=== PATIENT | female | born 1995 | race Caucasian/White ===

== ENCOUNTER 2017-04-23 14:18 | Emergency (ER) | payer SELFPAY ==
[~2017-04-23] VITALS: Ht 160 cm; Wt 50.7 kg
[2017-04-23 14:27] VITALS: Ht 160 cm; Wt 50.7 kg
[2017-04-23] MEDS ORDERED: SODIUM CHLORIDE 0.9% 1000ML 1,000 ML IV STA (15:21)
[2017-04-23 16:05] LABS: BASO % 0.2 %; BASO ABS # 0.02 K/uL (0-0.2); COMPLETE YES; EOS % 0.2 %; HEMATOCRIT 44.3 % (37-47); IG% 0.2 %; LYMPH % 26.6 %; LYMPH ABS # 3.37 K/uL (1.2-3.4); MEAN CELL VOLUME 87.2 fL (80-100); MEAN CORPUSCULAR HEMOGLOBIN 28.9 pg (25-34); MEAN CORPUSCULAR HGB CONC 33.2 g/dl (32-36); MEAN PLATELET VOLUME 9.2 fL (7.4-10.4); MONO % 6.2 %; NEUT % 66.6 %; PLATELET COUNT 332 K/uL (130-400); RED BLOOD COUNT 5.08 M/uL (4.2-5.4); WHITE BLOOD COUNT 12.68 K/uL (4.8-10.8)
[2017-04-23 16:14] LABS: URINE APPEARANCE CLEAR (CLEAR); URINE BILIRUBIN NEG (NEG); URINE COLOR DK YELLOW; URINE EPITHELIAL CELL AUTO >30 /lpf (0-5); URINE NITRITE NEG (NEG); URINE PH 5.5 (4.5-7.5); URINE SPECIFIC GRAVITY 1.032 (1.000-1.030); UROBILINOGEN NEG (NEG)
[2017-04-23 16:16] LABS: MANUAL MICROSCOPIC REQUIRED? NO; REVIEW REQ? NO
[2017-04-23 16:23] LABS: BUN/CREATININE RATIO 12.5 (10-20); CALCIUM 9.1 mg/dl (8.5-10.1); CREATININE 0.72 mg/dl (0.60-1.20); POTASSIUM 3.5 mmol/L (3.5-5.1)
[2017-04-23 16:26] LABS: ALB/GLOB RATIO 1.3 (0.9-2)
--- NOTE | 2017-04-23 17:49 | EMERGENCY ROOM VISIT NOTE ---
History First contact with patient: 15:13 Chief Complaint: OTHER COMPLAINT Stated Complaint: RICE LIKE OBJECTS IN FECES History of Present Illness The patient is a 21 year old female who presents to the Emergency Room with complaints of concern for tapeworm infection, states she noted white worms in her stool this morning. Patient states she has 4 cats that live with her that have all been diagnosed with tapeworm infection in the past week and have been receiving treatment. She states today is the first time she noticed possible worms in her stool. She denies any symptoms of fever/chills, nausea/vomiting, abdominal pain or cramping, diarrhea, constipation, blood in the stool, urinary symptoms. She denies eating any undercooked meats recently. Last menstrual period is 03/10, patient states her periods have been sporadic since coming off of implanted control in December. She states she is currently sexually active and does not use protection. Review of Systems GENERAL: Denies fevers, chills, malaise, fatigue, unintentional weight changes. HEENT: Denies dizziness, visual problems, hearing loss, tinnitus. Denies difficulty swallowing or oral lesions. PULMONARY: Denies cough, shortness of breath, sputum production or hemoptysis. CARDIOVASCULAR: Denies chest pain, palpitations, dyspnea on exertion, orthopnea or peripheral edema. GASTROINTESTINAL: Denies diarrhea, constipation, nausea, vomiting, or abdominal pain. GENITOURINARY: Denies dysuria, frequency, urgency or nocturia. NEUROLOGIC: Denies history of epilepsy, CVA, TIA or chronic headaches. MUSCULOSKELETAL: Denies history of joint tenderness/swelling. SKIN: Denies rashes or lesions. PSYCHIATRIC: Denies history of depression or mental illness. ENDOCRINE: Denies history of diabetes, thyroid disorders, abnormal hair growth or sexual dysfunction. Past Medical/Surgical History Medical Problems: (1) Hx of migraines Family History Diabetes mellitus Social History Smoking Status: Current Every Day Smoker Alcohol Use: none Drug Use: cocaine Marital Status: in relationship Occupation Status: student Current/Historical Medications No Active Prescriptions or Reported Meds Allergies Coded Allergies: Penicillins (Verified Allergy, Unknown, ., 11/05/16) Physical Exam Vital Signs Date Time Temp Pulse Resp B/P (MAP) Pulse Ox O2 Delivery O2 Flow Rate FiO2 04/23/17 18:09 36.6 80 16 118/62 97 Room Air 04/23/17 17:30 84 16 114/62 97 04/23/17 16:00 119 22 122/70 98 04/23/17 14:27 36.6 145 18 122/78 100 Room Air Physical Exam CONSTITUTIONAL: No acute distress. Anxious. Well appearing and well nourished. Alert and oriented X 4 with normal affect. HEENT: Normocephalic, atraumatic. Pupils equal, round and reactive to light, EOMI. TMs normal. Pharynx normal. Moist mucous membranes. NECK: Supple, full active range of motion without discomfort. RESPIRATORY: Clear to auscultation bilaterally with no wheezing, crackles, rhonchi or stridor. Equal expansion bilaterally. CARDIOVASCULAR: Regular rate and rhythm with no murmurs, rubs or gallops. Normal peripheral perfusion. No edema. GASTROINTESTINAL: Soft, nontender, nondistended. Bowel sounds present in all quadrants. No erythema, irritation, presence of parasites noted on exam of the anus. MUSCULOSKELETAL: Full range of motion of all joints without discomfort. INTEGUMENTARY: No rash or other significant dermatologic conditions noted. NEUROLOGIC: Cranial nerves II-XII grossly intact. No focal neurologic deficits noted. Medical Decision & Procedures Laboratory Results 04/23/17 15:45 Red Blood Count 5.08, Mean Corpuscular Volume 87.2, Mean Corpuscular Hemoglobin 28.9, Mean Corpuscular Hemoglobin Concent 33.2, Mean Platelet Volume 9.2, Neutrophils (%) (Auto) 66.6, Lymphocytes (%) (Auto) 26.6, Monocytes (%) (Auto) 6.2, Eosinophils (%) (Auto) 0.2, Basophils (%) (Auto) 0.2, Neutrophils # (Auto) 8.44, Lymphocytes # (Auto) 3.37, Monocytes # (Auto) 0.79, Eosinophils # (Auto) 0.03, Basophils # (Auto) 0.02 04/23/17 15:45 Test 04/23/17 00:00 04/23/17 15:25 04/23/17 15:45 Urine Color DK YELLOW Urine Appearance CLEAR (CLEAR) Urine pH 5.5 (4.5-7.5) Urine Specific [employer] 1.032 (1.000-1.030) Urine Protein TRACE (NEG) Urine Glucose (UA) NEG (NEG) Urine Ketones 2+ (NEG) Urine Occult Blood NEG (NEG) Urine Nitrite NEG (NEG) Urine Bilirubin NEG (NEG) Urine Urobilinogen NEG (NEG) Urine Leukocyte Esterase NEG (NEG) Urine WBC (Auto) 1-5 /hpf (0-5) Urine RBC (Auto) 0-4 /hpf (0-4) Urine Hyaline Casts (Auto) 1-5 /lpf (0-5) Urine Epithelial Cells (Auto) >30 /lpf (0-5) Urine Bacteria (Auto) NEG (NEG) White Blood Count 12.68 K/uL (4.8-10.8) Red Blood Count 5.08 M/uL (4.2-5.4) Hemoglobin 14.7 g/dL (12.0-16.0) Hematocrit 44.3 % (37-47) Mean Corpuscular Volume 87.2 fL (80-100) Mean Corpuscular Hemoglobin 28.9 pg (25-34) Mean Corpuscular Hemoglobin Concent 33.2 g/dl (32-36) Platelet Count 332 K/uL (130-400) Mean Platelet Volume 9.2 fL (7.4-10.4) Neutrophils (%) (Auto) 66.6 % Lymphocytes (%) (Auto) 26.6 % Monocytes (%) (Auto) 6.2 % Eosinophils (%) (Auto) 0.2 % Basophils (%) (Auto) 0.2 % Neutrophils # (Auto) 8.44 K/uL (1.4-6.5) Lymphocytes # (Auto) 3.37 K/uL (1.2-3.4) Monocytes # (Auto) 0.79 K/uL (0.11-0.59) Eosinophils # (Auto) 0.03 K/uL (0-0.5) Basophils # (Auto) 0.02 K/uL (0-0.2) RDW Standard Deviation 41.7 fL (36.4-46.3) RDW Coefficient of Variation 12.9 % (11.5-14.5) Immature Granulocyte % (Auto) 0.2 % Immature Granulocyte # (Auto) 0.03 K/uL (0.00-0.02) Anion Gap 10.0 mmol/L (3-11) Est Creatinine Clear Calc Drug Dose 100.6 ml/min Estimated GFR () 140.7 Estimated GFR (Non- 121.4 BUN/Creatinine Ratio 12.5 (10-20) Calcium Level 9.1 mg/dl (8.5-10.1) Total Bilirubin 0.6 mg/dl (0.2-1) Aspartate Amino Transf (AST/SGOT) 21 U/L (15-37) Alanine Aminotransferase (ALT/SGPT) 31 U/L (12-78) Alkaline Phosphatase 69 U/L (45-117) Total Protein 7.9 gm/dl (6.4-8.2) Albumin 4.4 gm/dl (3.4-5.0) Globulin 3.5 gm/dl (2.5-4.0) Albumin/Globulin Ratio 1.3 (0.9-2) Medications Administered Medications (Trade) Dose Ordered Sig/Zeenat Route Start Time Stop Time Status Last Admin Dose Admin Sodium Chloride 1,000 ml @ 999 mls/hr Q1H1M STAT IV 04/23/17 15:21 04/23/17 16:21 DC 04/23/17 15:56 999 MLS/HR Medical Decision CC: Patient presenting with complaint of possible tapeworm infection Interpretation of Labs: Mild leukocytosis, no anemia, no significant electrolyte abnormalities, normal renal function normal liver function, no UTI. Positive test. Differential Diagnosis: Includes, but not limited to tapeworm, pinworm, anxiety , dehydration, electrolyte abnormality. Medication Reconciliation: I attest that I have personally reviewed the patient' s current medication list. Vital signs review: I reviewed the patient's vital signs and interpret them as follows: T: Afebrile; BP: Normotensive; HR: WNL; RR: WNL; Pulse Ox: WNL. Blood pressure screening: The patient was found to have normal blood pressure on screening and does not require follow-up for repeat blood pressure check. Summary: Patient was evaluated at bedside, history of physical exam performed. Patient is very anxious on initial exam, states she is worried about having tapeworm. She is noted to be quite tachycardic on initial evaluation. Her exam is benign, no abdominal tenderness, she does not appear dehydrated. No evidence of tapeworm on examination of the anus. Orders were placed at bedside for labs, urinalysis, EKG, IV fluids to evaluate for causes of tachycardia. Patient discussed with Dr. Tyler, who agrees with my assessment and plan. Labs reviewed, no significant abnormalities. Patient noted to be incidentally on urine test. Tachycardia resolved after IV fluids and patient calm. Patient updated on results of test, she states she has no PCP currently and does not have medical insurance. Discussed with keycase assembler met with the patient, she is helping to arrange for patient to have follow-up medical care through [facility]. Patient unable to provide stool sample in the ED, she was instructed to have stool testing done through her PCP when she is established. Patient reassessed multiple times throughout ED stay, much improved on reassessment, no longer tachycardic or anxious. She was discharged home in stable condition. Impression Primary Impression: Change in stool Additional Impression: Incidental Departure Information Dispostion Home / Self-Care Condition GOOD Prescriptions No Active Prescriptions or Reported Meds Referrals No Doctor, Assigned (PCP) Patient Instructions My [facility] Common Questions Additional Instructions We are arranging for you to have follow-up with [facility]. We will call you on Tuesday to arrange follow-up appointment. We will also help to arrange OB follow-up for further management of her . Drink plenty of fluids to stay well hydrated. Once you have your follow-up appointment established, they will be able to arrange for testing your stool for parasites and determining further treatment. Please return to the ER for symptoms of severe abdominal pain, vaginal bleeding , persistent vomiting and unable to keep fluids down, fevers/chills, or any other concerns. Problem Qualifiers
[2017-04-23 18:09] VITALS: BP 118/62; PULSE 80; TEMP 36.6; O2SAT 97
== END 2017-04-23 18:18 | disposition home or self-care (01) ==
LOC: C.EDB 14:20 → C.EDA 18:18
DX: R19.5 Other fecal abnormalities (principal); Z33.1 Pregnant state, incidental; F17.200 Nicotine dependence, unspecified, uncomplicated; Z88.0 Allergy status to penicillin; Z83.3 Family history of diabetes mellitus

== ENCOUNTER → 2017-04-28 | Outpatient (CLI) | payer OTHER ==
[~2017-04-28] MED LIST: PREN0.12 PO
[2017-05-02 15:43] LABS: CHLAMYDIA TRACH RNA*** NOT DETECTED (NOT DETECTED); GC (NEIS GONORRHOEAE)RNA** NOT DETECTED (NOT DETECTED)
== END | disposition home or self-care (01) ==
LOC: C.LABSPEC 15:42
PROVIDERS: ATTEND Obstetrics & Gynecology
DX: Z34.01 Encounter for supervision of normal first pregnancy, first trimester (principal)

== ENCOUNTER → 2017-04-28 | Outpatient (CLI) | payer OTHER | END | disposition home or self-care (01) | LOC: C.PAPS 09:48 | PROVIDERS: ATTEND Obstetrics & Gynecology | DX: Z34.01 Encounter for supervision of normal first pregnancy, first trimester (principal) ==

== ENCOUNTER 2017-05-06 14:57 | Emergency (ER) | payer OTHER ==
[~2017-05-06] VITALS: Ht 157.5 cm; Wt 51.9 kg
[2017-05-06 15:06] VITALS: Ht 157.5 cm; Wt 51.9 kg
--- NOTE | 2017-05-06 15:23 | EMERGENCY ROOM VISIT NOTE ---
History Report prepared by Janelleibjan: Emmy Terrell Under the Supervision of: Dr. Itz Gabriel M.D. First contact with patient: 15:16 Chief Complaint: ED VAG BLEEDING Stated Complaint: BLEEDING WHILE -APPROX. 2 MTHS PREG. History of Present Illness The patient is a 21 year old female who presents to the Emergency Room with complaints of persistent vaginal bleeding for the past 1 hour. She is currently 2 months with her first . She reports she went to the bathroom around 1130 this morning and noticed "a pink, gelish discharge" when she wiped. When she urinated around 1430 this afternoon, she was bleeding vaginally and states there was "more bleeding than spotting". She did have sexual intercourse last night and is unsure if that is related. She does not know her blood type. The patient denies any chronic medical issues and states she takes no daily medications. She denies any recent fevers, cough or cold symptoms, nausea or vomiting. She does note her boyfriend is currently sick with cold symptoms. 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 A total of 10 systems reviewed and were otherwise negative. Past Medical & Surgical Medical Problems: (1) Hx of migraines Family History Diabetes mellitus Social History Smoking Status: Current Every Day Smoker Alcohol Use: none Drug Use: cocaine Marital Status: in relationship Housing Status: lives with family Occupation Status: student Current/Historical Medications Scheduled Vit W/ Ferrous Fumara (), 1 TAB PO QAM Allergies Coded Allergies: Penicillins (Verified Allergy, Unknown, ., 05/06/17) Physical Exam Vital Signs Date Time Temp Pulse Resp B/P (MAP) Pulse Ox O2 Delivery O2 Flow Rate FiO2 05/06/17 18:38 36.7 78 18 116/75 99 05/06/17 18:37 78 18 116/75 99 Room Air 05/06/17 17:30 81 18 111/71 99 Room Air 05/06/17 15:06 36.7 88 18 112/75 99 Room Air Physical Exam GENERAL: Patient is in no acute distress. HEENT: No acute trauma, normocephalic atraumatic, mucous membranes moist, no nasal congestion, no scleral icterus. NECK: No stridor, no adenopathy, no meningismus, trachea is midline. LUNGS: Clear to auscultation bilaterally, no wheeze, no rhonchi, breath sounds equal. HEART: Without murmurs gallops or rubs, regular rate and rhythm. ABDOMEN: Soft, nontender, bowel sounds positive, no hernias, no peritonitis. EXTREMITIES: No cyanosis or edema, full range of motion of all the joints without pain or difficulty, no signs for acute trauma. NEUROLOGIC: Oriented x 3, no acute motor or sensory deficits, no focal weakness. SKIN: No rash, no jaundice, no diaphoresis. 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 FINDINGS: Transabdominal and transvaginal scanning of the pelvis was performed. There is a 2.6 cm complex cyst within the right ovary. This favors a hemorrhagic cyst. Normal left ovary. There are 2 cystic foci within the endometrial which measure 6 mm and 3 mm in size. No evidence for a fetus at this time. No significant subchorionic hematoma. IMPRESSION: There are 2 cystic foci within the endometrium measuring 6 mm and 3 mm in size. These could represent 2 separate gestational sacs consistent with a twin . These would be considered 5 week intrauterine gestations. Follow-up beta-hCG and/or pelvic ultrasound in one to 2 weeks is recommended for further evaluation. Electronically signed by: Zhang Newman M.D. 05/06/2017 6:02 PM Laboratory Results 05/06/17 15:30 05/06/17 15:30 Test 05/06/17 15:30 05/06/17 15:36 Red Blood Count 4.64 M/uL (4.2-5.4) Mean Corpuscular Volume 86.9 fL (80-100) Mean Corpuscular Hemoglobin 30.2 pg (25-34) Mean Corpuscular Hemoglobin Concent 34.7 g/dl (32-36) RDW Standard Deviation 41.2 fL (36.4-46.3) RDW Coefficient of Variation 12.8 % (11.5-14.5) Mean Platelet Volume 9.1 fL (7.4-10.4) Anion Gap 9.0 mmol/L (3-11) Est Creatinine Clear Calc Drug Dose 99.4 ml/min Estimated GFR () 140.7 Estimated GFR (Non- 121.4 BUN/Creatinine Ratio 16.7 (10-20) Calcium Level 8.8 mg/dl (8.5-10.1) Human Chorionic Gonadotropin, Quant 3253 mIU/mL Urine Color YELLOW Urine Appearance CLEAR (CLEAR) Urine pH 6.5 (4.5-7.5) Urine Specific [place] 1.023 (1.000-1.030) Urine Protein NEG (NEG) Urine Glucose (UA) NEG (NEG) Urine Ketones NEG (NEG) Urine Occult Blood NEG (NEG) Urine Nitrite NEG (NEG) Urine Bilirubin NEG (NEG) Urine Urobilinogen NEG (NEG) Urine Leukocyte Esterase NEG (NEG) Laboratory results reviewed by me. ED Course 151: The patient was evaluated in room A2. A complete history and physical exam was performed.' 1809: I reevaluated the patient. She is feeling well and resting comfortably. I discussed her results and discharge instructions and she verbalized complete understanding and agreement. Medical Decision Medication Reconciliation: I attest that I have personally reviewed the patient' s current medication list. Blood Pressure Screening: Patient was found to have normal blood pressure on screening and does not require follow-up. The differential diagnoses considered include miscarriage, ectopic , vaginal bleeding in , UTI and vaginal trauma. There is no leukocytosis or concerning anemia. No significant electrolyte abnormality or kidney failure. Urinalysis does not show infection or hematuria. Quantitative beta hCG was within the range of a several week . Pelvic ultrasound shows 2 potential 5 week pregnancies within the uterus. On exam, the patient was not in pain, she was not febrile. She describes only minimal vaginal bleeding so I did not feel a pelvic exam was needed. The patient was told the results of her testing, she will follow with OB for a recheck in a few days. She will avoid sex and practice pelvic rest. She was encouraged to return to this ER for pain or heavier bleeding. Impression Primary Impression: Vaginal bleeding Additional Impression: Scribe Attestation The scribe's documentation has been prepared under my direction and personally reviewed by me in its entirety. I confirm that the note above accurately reflects all work, treatment, procedures, and medical decision making performed by me. Departure Information Dispostion Home / Self-Care Referrals No Doctor, Assigned (PCP) Patient Instructions My [facility] Additional Instructions no sex, use pelvic rest see your ob doctor next week return for pain or heavier bleeding Problem Qualifiers
[2017-05-06] MEDS ORDERED: PREN0.12 PO (15:30)
[2017-05-06 15:40] LABS: HEMATOCRIT 40.3 % (37-47); MEAN CELL VOLUME 86.9 fL (80-100); MEAN CORPUSCULAR HEMOGLOBIN 30.2 pg (25-34); MEAN CORPUSCULAR HGB CONC 34.7 g/dl (32-36); MEAN PLATELET VOLUME 9.1 fL (7.4-10.4); PLATELET COUNT 299 K/uL (130-400); RED BLOOD COUNT 4.64 M/uL (4.2-5.4); WHITE BLOOD COUNT 10.39 K/uL (4.8-10.8)
[2017-05-06 15:43] LABS: URINE APPEARANCE CLEAR (CLEAR); URINE BILIRUBIN NEG (NEG); URINE COLOR YELLOW; URINE NITRITE NEG (NEG); URINE PH 6.5 (4.5-7.5); URINE SPECIFIC GRAVITY 1.023 (1.000-1.030); UROBILINOGEN NEG (NEG); ZZUR CULT IF INDIC CLEAN CATCH NO
[2017-05-06 15:45] LABS: MANUAL MICROSCOPIC REQUIRED? NO; REVIEW REQ? NO
[2017-05-06 16:05] LABS: BUN/CREATININE RATIO 16.7 (10-20); CREATININE 0.72 mg/dl (0.60-1.20); POTASSIUM 3.5 mmol/L (3.5-5.1)
[2017-05-06 17:50] LABS: CALCIUM 8.8 mg/dl (8.5-10.1)
--- NOTE | 2017-05-06 18:03 | DIAGNOSTIC IMAGING REPORT ---
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 FINDINGS: Transabdominal and transvaginal scanning of the pelvis was performed. There is a 2.6 cm complex cyst within the right ovary. This favors a hemorrhagic cyst. Normal left ovary. There are 2 cystic foci within the endometrial which measure 6 mm and 3 mm in size. No evidence for a fetus at this time. No significant subchorionic hematoma. IMPRESSION: There are 2 cystic foci within the endometrium measuring 6 mm and 3 mm in size. These could represent 2 separate gestational sacs consistent with a twin . These would be considered 5 week intrauterine gestations. Follow-up beta-hCG and/or pelvic ultrasound in one to 2 weeks is recommended for further evaluation. Electronically signed by: Zhang Newman M.D. 05/06/2017 6:02 PM Dictated Date/Time: 05/06/2017 5:59 PM
[2017-05-06 18:38] VITALS: BP 116/75; PULSE 78; TEMP 36.7; O2SAT 99
--- NOTE | 2017-05-09 07:55 | DIAGNOSTIC IMAGING REPORT ---
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 FINDINGS: Transabdominal and transvaginal scanning of the pelvis was performed. There is a 2.6 cm complex cyst within the right ovary. This favors a hemorrhagic cyst. Normal left ovary. There are 2 cystic foci within the endometrial which measure 6 mm and 3 mm in size. No evidence for a fetus at this time. No significant subchorionic hematoma. IMPRESSION: There are 2 cystic foci within the endometrium measuring 6 mm and 3 mm in size. These could represent 2 separate gestational sacs consistent with a twin . These would be considered 5 week intrauterine gestations. Follow-up beta-hCG and/or pelvic ultrasound in one to 2 weeks is recommended for further evaluation. Electronically signed by: Zhang Newman M.D. 05/06/2017 6:02 PM Dictated Date/Time: 05/06/2017 5:59 PM
== END 2017-05-06 18:39 | disposition home or self-care (01) ==
LOC: C.EDB 14:59 → C.EDA 18:39
DX: O20.9 Hemorrhage in early pregnancy, unspecified (principal); Z3A.01 Less than 8 weeks gestation of pregnancy; G43.909 Migraine, unspecified, not intractable, without status migrainosus; O99.351 Diseases of the nervous system complicating pregnancy, first trimester; F17.210 Nicotine dependence, cigarettes, uncomplicated; O99.331 Smoking (tobacco) complicating pregnancy, first trimester

== ENCOUNTER → 2017-05-10 | Outpatient (CLI) | payer OTHER | END | disposition home or self-care (01) | LOC: C.LAB 10:23 | PROVIDERS: ATTEND Obstetrics & Gynecology | DX: O20.0 Threatened abortion (principal) ==

== ENCOUNTER 2017-05-11 22:25 | Emergency (ER) | payer OTHER ==
[~2017-05-11] VITALS: Ht 157.5 cm; Wt 52.2 kg
[2017-05-11 22:28] VITALS: TEMP 36.5; Ht 157.5 cm; Wt 52.2 kg
[2017-05-11 23:39] LABS: BASO % 0.3 %; BASO ABS # 0.03 K/uL (0-0.2); COMPLETE YES; EOS % 1.7 %; HEMATOCRIT 43.2 % (37-47); IG% 0.3 %; LYMPH % 37.1 %; LYMPH ABS # 3.88 K/uL (1.2-3.4); MEAN CELL VOLUME 88.2 fL (80-100); MEAN CORPUSCULAR HEMOGLOBIN 29.2 pg (25-34); MEAN CORPUSCULAR HGB CONC 33.1 g/dl (32-36); MONO % 6.7 %; NEUT % 53.9 %; PLATELET COUNT 301 K/uL (130-400); WHITE BLOOD COUNT 10.46 K/uL (4.8-10.8)
[2017-05-11 23:40] VITALS: O2SAT 96
[2017-05-12 00:02] LABS: BUN/CREATININE RATIO 19.1 (10-20); CALCIUM 9.1 mg/dl (8.5-10.1); CREATININE 0.73 mg/dl (0.60-1.20); POTASSIUM 3.4 mmol/L (3.5-5.1)
[2017-05-12 00:05] LABS: ALB/GLOB RATIO 1.2 (0.9-2)
[2017-05-12 01:46] VITALS: PULSE 105; O2SAT 97
--- NOTE | 2017-05-12 01:48 | EMERGENCY ROOM VISIT NOTE ---
History First contact with patient: 23:00 Chief Complaint: ED VAG BLEEDING Stated Complaint: SUSPECTED MISCARRIAGE, 5 WKS W/TWINS History of Present Illness The patient is a 21 year old female who presents to the Emergency Room with complaints of a possible miscarriage. The patient states she is approximately 5 weeks with twins. She was seen here 5 days ago due to some light pink discharge. She has followed up with her RN CARDIOVASCULAR and had a repeat hormone level drawn yesterday. She states that at approximately 8:30 this morning, she passed a large blood clot with what looked like tissue. She denies any pelvic pain. She states the bleeding has mostly resolved at this time and she has a small amount of pinkish discharge at this time. She denies any urinary symptoms. She is blood type A+. Review of Systems A complete 10 point review of systems was reviewed with the patient with pertinent positives and negatives as per history of present illness. All else were negative. Past Medical/Surgical History Medical Problems: (1) Hx of migraines Family History Diabetes mellitus Social History Smoking Status: Current Every Day Smoker Alcohol Use: none Drug Use: cocaine Marital Status: in relationship Housing Status: lives with family Occupation Status: student Current/Historical Medications Scheduled Vit W/ Ferrous Fumara (), 1 TAB PO QAM Allergies Coded Allergies: Penicillins (Verified Allergy, Unknown, ., 05/11/17) Physical Exam Vital Signs Date Time Temp Pulse Resp B/P (MAP) Pulse Ox O2 Delivery O2 Flow Rate FiO2 05/12/17 01:11 86 16 99 05/12/17 01:00 104/50 05/12/17 00:45 105/74 05/11/17 23:41 91 16 97 05/11/17 23:40 96 Room Air 05/11/17 23:36 92 16 97 05/11/17 23:35 84 05/11/17 23:31 120/66 05/11/17 22:28 36.5 148 16 125/73 100 Room Air Physical Exam VITALS: Vitals are noted on the nurse's note and reviewed by myself. Vital signs stable. GENERAL: This is a 21-year-old female, in no acute distress, nondiaphoretic, well-developed well-nourished. HEART: Regular rate and rhythm without murmurs gallops or rubs. LUNGS: Clear to auscultation bilaterally without wheezes, rales or rhonchi. ABDOMEN: Positive bowel sounds x 4. Soft, nontender to palpation. NEURO: Patient was alert and oriented to person place and time. Medical Decision & Procedures ER Provider Diagnostic Interpretation: US OB 1ST TRIMESTER: As on the prior, 2 intrauterine saclike structures maybe 2 gestational sacs. No yolk sac or pole. May represent early twin . Consider follow-up. 2.3 cm right ovarian complex cyst likely hemorrhagic cyst. Normal left ovary. Small amount of free fluid in the cul-de-sac. Radiologist: Jhon Holguin MD Laboratory Results 05/11/17 23:27 Red Blood Count 4.90, Mean Corpuscular Volume 88.2, Mean Corpuscular Hemoglobin 29.2, Mean Corpuscular Hemoglobin Concent 33.1, Mean Platelet Volume 9.0, Neutrophils (%) (Auto) 53.9, Lymphocytes (%) (Auto) 37.1, Monocytes (%) (Auto) 6.7, Eosinophils (%) (Auto) 1.7, Basophils (%) (Auto) 0.3, Neutrophils # (Auto) 5.64, Lymphocytes # (Auto) 3.88, Monocytes # (Auto) 0.70, Eosinophils # (Auto) 0.18, Basophils # (Auto) 0.03 05/11/17 23:27 Test 05/11/17 23:27 White Blood Count 10.46 K/uL (4.8-10.8) Red Blood Count 4.90 M/uL (4.2-5.4) Hemoglobin 14.3 g/dL (12.0-16.0) Hematocrit 43.2 % (37-47) Mean Corpuscular Volume 88.2 fL (80-100) Mean Corpuscular Hemoglobin 29.2 pg (25-34) Mean Corpuscular Hemoglobin Concent 33.1 g/dl (32-36) Platelet Count 301 K/uL (130-400) Mean Platelet Volume 9.0 fL (7.4-10.4) Neutrophils (%) (Auto) 53.9 % Lymphocytes (%) (Auto) 37.1 % Monocytes (%) (Auto) 6.7 % Eosinophils (%) (Auto) 1.7 % Basophils (%) (Auto) 0.3 % Neutrophils # (Auto) 5.64 K/uL (1.4-6.5) Lymphocytes # (Auto) 3.88 K/uL (1.2-3.4) Monocytes # (Auto) 0.70 K/uL (0.11-0.59) Eosinophils # (Auto) 0.18 K/uL (0-0.5) Basophils # (Auto) 0.03 K/uL (0-0.2) RDW Standard Deviation 40.9 fL (36.4-46.3) RDW Coefficient of Variation 12.8 % (11.5-14.5) Immature Granulocyte % (Auto) 0.3 % Immature Granulocyte # (Auto) 0.03 K/uL (0.00-0.02) Anion Gap 8.0 mmol/L (3-11) Est Creatinine Clear Calc Drug Dose 98.1 ml/min Estimated GFR () 138.4 Estimated GFR (Non- 119.4 BUN/Creatinine Ratio 19.1 (10-20) Calcium Level 9.1 mg/dl (8.5-10.1) Total Bilirubin 0.2 mg/dl (0.2-1) Aspartate Amino Transf (AST/SGOT) 19 U/L (15-37) Alanine Aminotransferase (ALT/SGPT) 26 U/L (12-78) Alkaline Phosphatase 75 U/L (45-117) Total Protein 8.0 gm/dl (6.4-8.2) Albumin 4.4 gm/dl (3.4-5.0) Globulin 3.6 gm/dl (2.5-4.0) Albumin/Globulin Ratio 1.2 (0.9-2) Human Chorionic Gonadotropin, Quant 3023 mIU/mL ED Course The patient was evaluated as above. Labs were drawn and IV access was obtained. Patient was reevaluated and findings were discussed. The patient would like to go home. Case was discussed with Dr. Silva of RN CARDIOVASCULAR. He recommends that the patient call the office in the morning to schedule follow-up. Discharge instructions were reviewed with the patient. The patient verbalized understanding of my assessment and treatment plan and was discharged home in good condition. Medical Decision Differential diagnosis includes spontaneous , ectopic , bleeding in early , among others. The patient is a 21-year-old female who presents today complaining of vaginal bleeding. Labs revealed no leukocytosis or anemia. Beta hCG was found to be 3023. Records were reviewed. The patient had a beta hCG yesterday which was 4188. Her ultrasound today was similar to previous, showing 2 gestational sacs but no yolk sac or pole. I do feel this represents a spontaneous /inevitable . The patient will need close follow-up with RN CARDIOVASCULAR. She was informed of the findings and educated on conservative measures. She was instructed to return for lightheadedness, passing out, or significant blood loss. I discussed the case with her RN CARDIOVASCULAR, who recommended follow-up in the office. Patient is blood type A+ and will not require RhoGAM. Patient was borderline hypotensive, but previous records show that this has been baseline for her blood pressure. Based on the patient's presentation and work up, I feel the patient is stable for outpatient treatment. The patient was educated to return to the emergency department for any worsening of their current condition or new/concerning symptoms. She will follow up with Dr. Silva. Medication reconciliation: I attest that I have personally reviewed the patient 's current medication list. Blood pressure screening: Patient was found to have normal blood pressure on screening and does not require follow-up. Impression Primary Impression: Inevitable Departure Information Dispostion Home / Self-Care Condition GOOD Referrals No Doctor, Assigned (PCP) Regino Silva M.D. Patient Instructions My [facility] Additional Instructions For pain control, you can use the following ytiu-xhy-driaocd medicines (if >12 yo): - Regular strength (325mg/tab) Tylenol (acetaminophen) 2 tabs every 4-6 hours as needed. Do not exceed 12 tablets in a 24 hour period. Avoid taking more than 4 grams (4000 mg) of Tylenol per day. This includes any other sources of acetaminophen you may take on a regular basis. - Regular strength (200 mg/tab) Advil (ibuprofen) 1-2 tabs every 4-6 hours as needed. Do not exceed a dose of 3200 mg per day. You will most likely has some vaginal bleeding. If you experience bleeding that is soaking through several pads per hour, lightheadedness, or dizziness, you should return to the emergency department. Call Dr. Silva's office tomorrow to schedule follow-up.
[2017-05-12 01:49] VITALS: BP 97/43
--- NOTE | 2017-05-12 07:25 | DIAGNOSTIC IMAGING REPORT ---
LIMITED (US) CLINICAL HISTORY: increased vaginal bleeding, twin COMPARISON STUDY: ultrasound 05/06/2017. FINDINGS: There again noted two cystic structures within the endometrium suggestive of gestational sacs. These measure 8 and 5 mm in size. These are now located within the lower uterine segment instead of the fundus. Therefore, these are concerning for a spontaneous in progress. There is a 2.3 cm complex cyst within the right ovary likely representing a hemorrhagic cyst. This is similar to the prior study. Normal left ovary. Small amount pelvic free fluid. IMPRESSION: There are again noted two small cystic structures within the endometrium suggestive of gestational sacs. However, these are now located within the lower uterine segment instead of the fundus as seen on the prior study. Therefore, these are concerning for a spontaneous in progress. Continued follow-up recommended. Electronically signed by: Zhang Newman M.D. 05/12/2017 7:24 AM Dictated Date/Time: 05/12/2017 7:20 AM
== END 2017-05-12 01:55 | disposition home or self-care (01) ==
LOC: C.EDB 22:26 → C.EDC 05-12 01:55
DX: O03.9 Complete or unspecified spontaneous abortion without complication (principal); Z3A.01 Less than 8 weeks gestation of pregnancy; Z83.3 Family history of diabetes mellitus; F17.210 Nicotine dependence, cigarettes, uncomplicated

== ENCOUNTER → 2017-05-18 | Day surgery (SDC) | payer OTHER ==
[~2017-05-18] VITALS: Ht 158.2 cm; Wt 51.0 kg
[~2017-05-18] MED LIST changes: +ALBUTEROL HFA INHALER 8.5 GM INH ONE; +ATROPINE SULFATE 0.1 MG/ML 5ML SYR IV PRN; +CHECK SCOPOLAMINE PATCH PLACEMENT SCH; +DEXAMETHASONE SOD INJ 4 MG/ML VIAL ONE; +EpHEDrine SULFATE INJ 50 MG/ML AMP IV PRN; +FENTANYL CITRATE INJ 50 MCG/1 ML 2 ML VIAL IV PRN; +FENTANYL CITRATE INJ 50 MCG/1 ML 2 ML VIAL ONE; +HYDROCODONE/ACETAMOPHEN 5/325MG TAB PO PRN; +HYDROmorphone INJ 1 MG/ML SYR IV PRN; +IBUPROFEN 600 MG TAB PO PRN; +KETOROLAC TROMETHAMINE 30 MG/ML VIAL IV. PRN; +KETOROLAC TROMETHAMINE 30 MG/ML VIAL ONE; +LIDOCAINE 2% 20 MG/ML 5ML SYR ONE; +MIDAZOLAM HCL 1 MG/ML 2ML VIAL ONE; +NURSING VERBAL MED ORDER ONE; +ONDANSETRON INJ 2 MG/ML 2 ML VIAL IV PRN; +ONDANSETRON INJ 2 MG/ML 2 ML VIAL ONE; +OXYCODONE/ACETAMINOPHEN 5-325 TAB PO PRN; +PROPOFOL IV EMULSION 10 MG/ML 20 ML VIAL IV ONE; +SCOPOLAMINE 1.5 MG TDSY TD ONE; +SODIUM CHLORIDE 0.9% 1000ML 1,000 ML IV SCH
--- NOTE | 2017-05-18 08:10 | History and Physical ---
History & Physical Date May 18, 2017. Chief Complaint BLEEDING TWIN History of Present Illness The patient is a 21 year old female with complaints of Past Medical/Surgical History Medical Problems: (1) Hx of migraines Additional History Hepatic Disease: No Endocrine Disorder: No Kidney Disease: No Hypertension: No Heart Disease: No Bleeding Tendencies: No Infectious Diseases: No LMP: 03/10/17 Allergies Coded Allergies: Penicillins (Verified Allergy, Unknown, ., 05/11/17) Home Medications Scheduled Vit W/ Ferrous Fumara (), 1 TAB PO QAM Physical Examination Skin: warm/dry, no rash Eyes: normal inspection ENT: normal ENT inspection Head: normocephalic Respiratory/Chest: lungs clear Cardiovascular: regular rate, rhythm Abdomen / GI: normal bowel sounds Back: normal inspection Extremities: normal inspection Genitourinary - Female: + pertinent finding Plan of Treatment VAGINAL BLEEDING DEMISE OF TWIN AT 5 6 WEEKS GESTATION SCHEDULED FOR SUCTION EVACUATION OF UTERINE CONTENTS
[2017-05-18 08:57] VITALS: BP 105/61; PULSE 81; TEMP 36.9; O2SAT 97; Ht 158.2 cm; Wt 51.0 kg
--- NOTE | 2017-05-18 10:06 | [facility] Post Operative Brief Note ---
Immediate Operative Summary Operative Date May 18, 2017. Pre-Operative Diagnosis Missed , Twins Post-Operative Diagnosis Same as preoperative Procedure(s) Performed Dilation and Evacuation Surgeon Dr. Regino Silva Certified Physician'S Assistant Surgeon(s) None per surgeon Estimated Blood Loss 20 ml Findings uterine contents Specimens A.) Products of Conception Complication(s) None Disposition Recovery Room / PACU
--- NOTE | 2017-05-18 10:09 | Discharge Instructions ---
Discharge Instructions Date of Service May 18, 2017. Visit Reason for Visit: Missed , Twins Discharge Discharge Diagnosis / Problem: missed twins Discharge Goals Goal(s): Improve function, Therapeutic intervention Activity Recommendations Activity Limitations: as noted below ACTIVITY RECOMMENDATIONS: * Avoid tampons, douching, hot tubs, pools, and intercourse until bleeding has stopped. * May shower as usual. * No strenuous activity for 24-48 hours. After 24-48 hours, you may do anything you feel like doing (driving and sports are okay). SPECIAL CARE INSTRUCTIONS: Special Diet: * Mild nausea may occur in the immediate post-operative period. * Take clear liquids such as tea, cola or bouillon until all nausea has subsided; you may then resume your normal diet. Special Care: * Light bleeding and vaginal spotting can last from a few days to 3-4 weeks. Call your doctor if bleeding becomes heavier than the heaviest part of your period. * Check your temperature twice a day for one week. If it goes above 100.4 degrees Fahrenheit (38.0 Celsius), notify your doctor. * Call your doctor's office for an appointment for 6 weeks after your surgery. FOLLOW-UP VISIT: Call your doctor's office for an appointment for 6 weeks after your surgery. Anesthesia . Post Anesthesia Instructions: If you have had General Anesthesia or IV Sedation: * Do not drive today. * Resume driving when surgeon permits. * Do not make important decisions or sign legal documents today. * Call surgeon for: 1. Temperature elevations greater than 101 degrees F. 2. Uncontrollable pain. 3. Excessive bleeding. 4. Persistent nausea and vomiting. 5. Medication intolerance (nausea, vomiting or rash). * For nausea and vomiting use only clear liquids such as: tea, soda, bouillon until nausea subsides, then gradually increase diet as tolerated. * If you have any concerns or questions, call your surgeon's office. If physician is unavailable and it is an emergency, call 911 or go to the nearest emergency room. . Diet Recommendations Recommended Home Diet: resume previous diet Procedures Procedures Performed: Dilation and Evacuation Pending Studies Studies pending at discharge: no Medical Emergencies . Who to Call and When: Medical Emergencies: If at any time you feel your situation is an emergency, please call 911 immediately. . Non-Emergent Contact Non-Emergency issues call your: Infrastructure Engineer Call Non-Emergent contact if: temperature is above 100.5 . . "Provider Documentation" section prepared by Regino Silva. .
--- NOTE | 2017-05-18 10:12 | [facility] Operative Report ---
Operative Report Operative Date May 18, 2017. Pre-Operative Diagnosis Missed , Twins Procedure(s) Performed suction evacuation uterine contents Surgeon Dr. Regino Silva Elevator Worker Surgeon(s) None per surgeon Estimated Blood Loss 20 ml Findings placental tissue Specimens A.) Products of Conception Complication(s) None Disposition Recovery Room / PACU I attest to the content of the Intraoperative Record and any orders documented therein. Any exceptions are noted below.
--- NOTE | 2017-05-18 11:04 | Anesthesiology Progress Note ---
Anesthesia Post Op Note Date & Time May 18, 2017 at 11:03 Vital Signs Pain Intensity: 0 Vital Signs Past 12 Hours Date Time Temp Pulse Resp B/P (MAP) Pulse Ox O2 Delivery O2 Flow Rate FiO2 05/18/17 10:50 36.4 64 18 108/68 100 Room Air 05/18/17 10:40 66 18 112/71 100 Room Air 05/18/17 10:30 44 16 91/55 100 Mask 10 05/18/17 10:20 46 14 85/49 100 Mask 10 05/18/17 10:10 36.1 47 14 89/56 100 Mask 10 05/18/17 08:57 36.9 81 20 105/61 (76) 97 Room Air Notes Mental Status: alert / awake / arousable, participated in evaluation Pt Amnestic to Procedure: Yes Nausea / Vomiting: adequately controlled Pain: adequately controlled Airway Patency, RR, SpO2: stable & adequate BP & HR: stable & adequate Hydration State: stable & adequate Anesthetic Complications: no major complications apparent
[2017-05-18 11:05] VITALS: BP 99/67; TEMP 36.5; O2SAT 100
[2017-05-18 11:30] VITALS: BP 94/58; PULSE 51; O2SAT 100
[2017-05-18 11:50] VITALS: BP 99/57; PULSE 54; TEMP 36.5; O2SAT 100
== END | disposition home or self-care (01) ==
LOC: C.ACU 08:35
PROVIDERS: ATTEND Obstetrics & Gynecology
DX: O02.1 Missed abortion (principal)

== ENCOUNTER 2017-08-07 09:42 | Emergency (ER) | payer OTHER ==
[~2017-08-07] VITALS: Ht 157.5 cm; Wt 52.1 kg
[2017-08-07 09:48] VITALS: Ht 157.5 cm; Wt 52.1 kg
[2017-08-07] MEDS ORDERED: SODIUM CHLORIDE 0.9% 1000ML 1,000 ML IV STA (10:05)
[2017-08-07 10:21] LABS: BASO % 0.2 %; BASO ABS # 0.02 K/uL (0-0.2); COMPLETE YES; EOS % 0.6 %; HEMATOCRIT 41.7 % (37-47); IG% 0.2 %; LYMPH % 29.5 %; LYMPH ABS # 2.87 K/uL (1.2-3.4); MEAN CELL VOLUME 87.8 fL (80-100); MEAN CORPUSCULAR HEMOGLOBIN 30.3 pg (25-34); MEAN CORPUSCULAR HGB CONC 34.5 g/dl (32-36); MEAN PLATELET VOLUME 9.2 fL (7.4-10.4); NEUT % 61.5 %; PLATELET COUNT 259 K/uL (130-400); RED BLOOD COUNT 4.75 M/uL (4.2-5.4); WHITE BLOOD COUNT 9.72 K/uL (4.8-10.8)
--- NOTE | 2017-08-07 10:22 | EMERGENCY ROOM VISIT NOTE ---
History Report prepared by Isaiah: Alf Chavez Under the Supervision of: Dr. Erik Burrows D.O. First contact with patient: 09:59 Chief Complaint: ABDOMINAL PAIN Stated Complaint: SEVERE CRAMPS IN ABD. AREA, IRREGULAR BM'S Nursing Triage Summary: pt reports cats treated for tapeworm in April , at that time pt found out + preg. misscarriage of preg in May. pt reports for past 2 weeks noted white spots in bowel movements with constant abdominal cramping History of Present Illness The patient is a 22 year old female who presents to the Emergency Room with complaints of intermittent cramping abdominal pain starting two weeks ago. The patient states that in April her cat was treated for a tapeworm, and the patient thinks that she has one. She states that for the past three weeks she has been having very irregular bowel movements with different colors and consistencies including diarrhea. The patient additionally notes that she recently had a miscarriage. The patient denies any nausea, vomiting, fevers, chills, and hematochezia. She denies any antibiotic use or recent travel. The patient denies any vaginal bleeding and discharge, and she states that she has had a D& E for her miscarriage, though she denies any other surgeries. She states that she smokes cigarettes. Source of History: patient Onset: two weeks Position: abdomen Quality: cramping Timing: intermittent Associated Symptoms: No fevers, No chills, No nausea, No vomiting, No hematochezia Review of Systems See HPI for pertinent positives & negatives. A total of 10 systems reviewed and were otherwise negative. Past Medical & Surgical Medical Problems: (1) Hx of migraines Family History Diabetes mellitus Social History Smoking Status: Current Every Day Smoker Alcohol Use: none Drug Use: cocaine Marital Status: in relationship Housing Status: lives with family Occupation Status: student Current/Historical Medications No Active Prescriptions or Reported Meds Allergies Coded Allergies: Penicillins (Verified Allergy, Unknown, ., 08/07/17) Physical Exam Vital Signs Date Time Temp Pulse Resp B/P (MAP) Pulse Ox O2 Delivery O2 Flow Rate FiO2 08/07/17 14:58 36.6 67 18 114/87 99 08/07/17 10:48 67 18 114/87 99 Room Air 08/07/17 09:48 36.6 100 20 119/75 100 Room Air Physical Exam GENERAL: Patient is awake, alert, and in no acute distress. Patient is resting comfortably and showing no signs of anxiety EYES: The conjunctivae are clear. The pupils are round and reactive. EARS, NOSE, MOUTH AND THROAT: The nose is without any evidence of any deformity. Mucous membranes are moist tongue is midline NECK: The neck is nontender and supple. RESPIRATORY: Normal respiratory effort is noted there is no evidence of wheezing rhonchi or rales CARDIOVASCULAR: Regular rate and rhythm noted there no murmurs rubs or gallops normal S1 normal S2 GASTROINTESTINAL: The abdomen is soft, non distended. Diffuse tenderness to palpation. No guarding or rigidity. BACK: No midline tenderness or or step-off noted range of motion in flexion extension as well as rotation no signs of muscle spasm noted MUSCULOSKELETAL/EXTREMITIES: There is no evidence of gross deformity full range of motion is noted in the hips and shoulders SKIN: There is no obvious evidence of any rash. There are no petechiae, pallor or cyanosis noted. NEUROLOGIC: Patient is awake alert and oriented x3 strength is symmetric patellar reflexes are 2+ bilaterally Medical Decision & Procedures ER Provider Diagnostic Interpretation: Radiology results as stated below per my review and radiologist interpretation: <14 WKS SINGLE CLINICAL HISTORY: 22 years-old Female presenting with cramping, D&C in May, positive test, no abnormal bleeding. TECHNIQUE: Real-time grayscale and color and spectral Doppler ultrasound imaging of the pelvis was performed using a transabdominal probe. COMPARISON: 05/11/2017. FINDINGS: Uterus: Single live intrauterine . Gestational sac measures 1.8 cm correlating to a gestational age of 6 weeks 2 days. [place]-rump length measures 0.9 cm correlating to a gestational age of 6 weeks 6 days. heart rate 139 beats per minute. Anteverted. Normal amniotic fluid volume. Small perigestational hemorrhage measuring 1.4 x 0.4 x 1.2 cm. Cervix long and closed. Right adnexa: Right ovary contains a corpus luteum. Right ovary measures 3.0 x 2.4 x 2.0 cm. Grossly normal color Doppler flow within the ovarian parenchyma. Left adnexa: Left ovary normal. Left ovary measures 2.6 x 1.8 x 1.4 cm. Grossly normal color Doppler flow within the ovarian parenchyma. Other: No free fluid. IMPRESSION: 1. Single live intrauterine with a composite gestational age of 6 weeks 4 days and estimated date of delivery 03/29/2018. Small perigestational hemorrhage. 2. Normal ovaries. Electronically signed by: Kris Finley M.D. 08/07/2017 2:27 PM Dictated Date/Time: 08/07/2017 2:23 PM Laboratory Results 08/07/17 10:10 Red Blood Count 4.75, Mean Corpuscular Volume 87.8, Mean Corpuscular Hemoglobin 30.3, Mean Corpuscular Hemoglobin Concent 34.5, Mean Platelet Volume 9.2, Neutrophils (%) (Auto) 61.5, Lymphocytes (%) (Auto) 29.5, Monocytes (%) (Auto) 8.0, Eosinophils (%) (Auto) 0.6, Basophils (%) (Auto) 0.2, Neutrophils # (Auto) 5.97, Lymphocytes # (Auto) 2.87, Monocytes # (Auto) 0.78, Eosinophils # (Auto) 0.06, Basophils # (Auto) 0.02 08/07/17 10:10 Test 08/07/17 10:10 08/07/17 11:00 08/07/17 11:18 White Blood Count 9.72 K/uL (4.8-10.8) Red Blood Count 4.75 M/uL (4.2-5.4) Hemoglobin 14.4 g/dL (12.0-16.0) Hematocrit 41.7 % (37-47) Mean Corpuscular Volume 87.8 fL (80-100) Mean Corpuscular Hemoglobin 30.3 pg (25-34) Mean Corpuscular Hemoglobin Concent 34.5 g/dl (32-36) Platelet Count 259 K/uL (130-400) Mean Platelet Volume 9.2 fL (7.4-10.4) Neutrophils (%) (Auto) 61.5 % Lymphocytes (%) (Auto) 29.5 % Monocytes (%) (Auto) 8.0 % Eosinophils (%) (Auto) 0.6 % Basophils (%) (Auto) 0.2 % Neutrophils # (Auto) 5.97 K/uL (1.4-6.5) Lymphocytes # (Auto) 2.87 K/uL (1.2-3.4) Monocytes # (Auto) 0.78 K/uL (0.11-0.59) Eosinophils # (Auto) 0.06 K/uL (0-0.5) Basophils # (Auto) 0.02 K/uL (0-0.2) RDW Standard Deviation 40.1 fL (36.4-46.3) RDW Coefficient of Variation 12.4 % (11.5-14.5) Immature Granulocyte % (Auto) 0.2 % Immature Granulocyte # (Auto) 0.02 K/uL (0.00-0.02) Anion Gap 6.0 mmol/L (3-11) Est Creatinine Clear Calc Drug Dose 110.9 ml/min Estimated GFR () 148.9 Estimated GFR (Non- 128.5 BUN/Creatinine Ratio 9.7 (10-20) Calcium Level 9.4 mg/dl (8.5-10.1) Total Bilirubin 0.5 mg/dl (0.2-1) Direct Bilirubin 0.2 mg/dl (0-0.2) Aspartate Amino Transf (AST/SGOT) 15 U/L (15-37) Alanine Aminotransferase (ALT/SGPT) 19 U/L (12-78) Alkaline Phosphatase 52 U/L (45-117) Total Protein 7.5 gm/dl (6.4-8.2) Albumin 4.1 gm/dl (3.4-5.0) Lipase 59 U/L (73-393) Human Chorionic Gonadotropin, Qual POS (NEG) Human Chorionic Gonadotropin, Quant 10004 mIU/mL Urine Color YELLOW Urine Appearance CLEAR (CLEAR) Urine pH 7.5 (4.5-7.5) Urine Specific [place] 1.010 (1.000-1.030) Urine Protein NEG (NEG) Urine Glucose (UA) NEG (NEG) Urine Ketones NEG (NEG) Urine Occult Blood NEG (NEG) Urine Nitrite NEG (NEG) Urine Bilirubin NEG (NEG) Urine Urobilinogen NEG (NEG) Urine Leukocyte Esterase NEG (NEG) Date/Time Source Procedure Growth Status 08/07/17 11:00 Stool C.difficile Toxin B Gene (PCR) - Final Complete Laboratory results per my review. Medications Administered Medications (Trade) Dose Ordered Sig/Zeenat Route Start Time Stop Time Status Last Admin Dose Admin Sodium Chloride 1,000 ml @ 999 mls/hr Q1H1M STAT IV 08/07/17 10:05 08/07/17 11:05 DC 08/07/17 10:33 999 MLS/HR ED Course 0959: The patient was evaluated in room C4. A complete history and physical examination were performed. 1005: NSS 1,000 ml @ 999 mls/hr IV 1204: A bedside ultrasound was performed revealing a intrauterine . heart tones were noted. 1306: I discussed the patient's case with Dr. An, and she recommends getting a formal ultrasound done. 1449: Upon reevaluation, the patient is doing well. I discussed the results and treatment plan with her. She verbalized agreement of the treatment plan. She was discharged home. Medical Decision Differential diagnosis: Etiologies such as appendicitis, diverticulitis, PUD, biliary pathology, UTI, pancreatitis, obstruction, mesenteric ischemia, aortic pathology, infections, inflammatory bowel disease, renal colic, as well as others were entertained. Nursing notes reviewed. The patient is a 22-year-old female who presented to the emergency department for diarrhea. The patient had pets that were recently treated for a parasitic worm infection. The patient thought she may have contracted this infection. She was seen in our facility for the symptoms in April but at that time could not be treated because she was . The patient states that she had a miscarriage requiring a surgical intervention by the [facility] physician. She states that she continues have a loose bowel movements and presents to the pharmacy today for further evaluation of diarrhea. The patient was found to be again here. She was found have a single live intrauterine gestation. I discussed the patient's laboratory radiographic studies with her. I do not feel that she can be treated for a suspected parasitic infection until the labs show that there is a definite infection. Stool was sent. I discussed her case with the on-call [facility] physician. She is agreed to follow the patient up as an outpatient. The patient did not have a physical exam consistent with an acute surgical abdomen. I discussed follow-up with her and she was encouraged to return to the emergency department immediately if symptoms change worsen or the need arises. Medication Reconcilliation Current Medication List: was personally reviewed by me Blood Pressure Screening Patient's blood pressure: Normal blood pressure Consults Time Called: 1230 Consulting Physician: Dr. An, [facility] Returned Call: 1306 I discussed the patient's case with Dr. An, and she recommends getting a formal ultrasound done. Impression Primary Impression: Threatened miscarriage Additional Impression: Diarrhea Scribe Attestation The scribe's documentation has been prepared under my direction and personally reviewed by me in its entirety. I confirm that the note above accurately reflects all work, treatment, procedures, and medical decision making performed by me. Departure Information Dispostion Home / Self-Care Prescriptions No Active Prescriptions or Reported Meds Referrals No Doctor, Assigned (PCP) Forms HOME CARE DOCUMENTATION FORM, IMPORTANT VISIT INFORMATION, Work Instructions Patient Instructions ED Miscarriage Poss, ED Vomiting Diarrhea Nonspecific Ad, My [facility] Additional Instructions Call the [facility] physician as scheduled follow-up appointment. Rest and avoid any strenuous activity. Continue all medications as prescribed. Follow-up with your family doctor regarding his stool studies. Problem Qualifiers
[2017-08-07 10:34] LABS: BUN/CREATININE RATIO 9.7 (10-20); CALCIUM 9.4 mg/dl (8.5-10.1); CREATININE 0.64 mg/dl (0.60-1.20); POTASSIUM 3.6 mmol/L (3.5-5.1)
[2017-08-07 10:44] LABS: PREG INTERNAL NEGATIVE QC NEG CLEAR BACKGROUND; PREG INTERNAL POSITIVE QC POS CONTROL LINE
[2017-08-07 11:26] LABS: URINE APPEARANCE CLEAR (CLEAR); URINE BILIRUBIN NEG (NEG); URINE COLOR YELLOW; URINE NITRITE NEG (NEG); URINE PH 7.5 (4.5-7.5); UROBILINOGEN NEG (NEG)
[2017-08-07 11:29] LABS: MANUAL MICROSCOPIC REQUIRED? NO; REVIEW REQ? NO
--- NOTE | 2017-08-07 14:28 | DIAGNOSTIC IMAGING REPORT ---
<14 WKS SINGLE CLINICAL HISTORY: 22 years-old Female presenting with cramping, D&C in May, positive test, no abnormal bleeding. TECHNIQUE: Real-time grayscale and color and spectral Doppler ultrasound imaging of the pelvis was performed using a transabdominal probe. COMPARISON: 05/11/2017. FINDINGS: Uterus: Single live intrauterine . Gestational sac measures 1.8 cm correlating to a gestational age of 6 weeks 2 days. [place]-rump length measures 0.9 cm correlating to a gestational age of 6 weeks 6 days. heart rate 139 beats per minute. Anteverted. Normal amniotic fluid volume. Small perigestational hemorrhage measuring 1.4 x 0.4 x 1.2 cm. Cervix long and closed. Right adnexa: Right ovary contains a corpus luteum. Right ovary measures 3.0 x 2.4 x 2.0 cm. Grossly normal color Doppler flow within the ovarian parenchyma. Left adnexa: Left ovary normal. Left ovary measures 2.6 x 1.8 x 1.4 cm. Grossly normal color Doppler flow within the ovarian parenchyma. Other: No free fluid. IMPRESSION: 1. Single live intrauterine with a composite gestational age of 6 weeks 4 days and estimated date of delivery 03/29/2018. Small perigestational hemorrhage. 2. Normal ovaries. Electronically signed by: Kris Finley M.D. 08/07/2017 2:27 PM Dictated Date/Time: 08/07/2017 2:23 PM
[2017-08-07 14:58] VITALS: BP 114/87; PULSE 67; TEMP 36.6; O2SAT 99
[2017-08-16 11:18] LABS: O&P SOURCE OTHER-STOOL
== END 2017-08-07 14:59 | disposition home or self-care (01) ==
LOC: C.EDC 09:46
DX: O20.0 Threatened abortion (principal); Z3A.14 14 weeks gestation of pregnancy; R19.7 Diarrhea, unspecified; O99.332 Smoking (tobacco) complicating pregnancy, second trimester; F17.210 Nicotine dependence, cigarettes, uncomplicated; F14.90 Cocaine use, unspecified, uncomplicated; Z83.3 Family history of diabetes mellitus

== ENCOUNTER → 2017-08-31 | Outpatient (CLI) | payer OTHER ==
[2017-08-31 16:27] LABS: URINE APPEARANCE CLEAR (CLEAR); URINE BILIRUBIN NEG (NEG); URINE COLOR YELLOW; URINE NITRITE NEG (NEG); URINE PH 6.5 (4.5-7.5); URINE SPECIFIC GRAVITY 1.021 (1.000-1.030); UROBILINOGEN NEG (NEG)
[2017-08-31 16:28] LABS: MANUAL MICROSCOPIC REQUIRED? NO; REVIEW REQ? NO
== END | disposition home or self-care (01) ==
LOC: C.LABSPEC 13:24
PROVIDERS: ATTEND Obstetrics & Gynecology
DX: O09.291 Supervision of pregnancy with other poor reproductive or obstetric history, first trimester (principal)

== ENCOUNTER → 2017-09-06 | Outpatient (CLI) | payer OTHER ==
[2017-09-08 15:16] LABS: CHLAMYDIA TRACH RNA*** NOT DETECTED (NOT DETECTED); GC (NEIS GONORRHOEAE)RNA** NOT DETECTED (NOT DETECTED)
== END | disposition home or self-care (01) ==
LOC: C.LAB1850 09:22
PROVIDERS: ATTEND Obstetrics & Gynecology
DX: O09.291 Supervision of pregnancy with other poor reproductive or obstetric history, first trimester (principal); Z3A.00 Weeks of gestation of pregnancy not specified

== ENCOUNTER → 2017-10-04 | Outpatient (CLI) | payer OTHER ==
[2017-10-04 17:39] LABS: GTGD 50 Grams
[2017-10-06 14:35] LABS: AFP CONCENTRATION 43.9 NG/ML; AFP MULTIPLE OF MEDIAN 1.15; AFPTS GESTATIONAL AGE 16.3 WEEKS; AFPTS INSULIN DEP DIABETIC? NO; AFPTS MATERNAL WT 125 LBS; ALPHA-FETOPROTEIN RACE CAUCASIAN=W; ESTRIOL MULTIPLE OF MEDIAN 0.76; HISTORY OF NTD NO; INHIBIN A 132 PG/ML; INHIBIN A MOM 0.71; REPEAT SAMPLE? NO; hCG MULTIPLE OF MEDIAN 0.23
== END | disposition home or self-care (01) ==
LOC: C.LAB1850 15:13
PROVIDERS: ATTEND Obstetrics & Gynecology
DX: O09.292 Supervision of pregnancy with other poor reproductive or obstetric history, second trimester (principal)

== ENCOUNTER → 2017-12-27 | Outpatient (CLI) | payer OTHER ==
[~2017-12-27] MED LIST changes: -ALBUTEROL HFA INHALER 8.5 GM INH ONE; -ATROPINE SULFATE 0.1 MG/ML 5ML SYR IV PRN; -CHECK SCOPOLAMINE PATCH PLACEMENT SCH; -DEXAMETHASONE SOD INJ 4 MG/ML VIAL ONE; -EpHEDrine SULFATE INJ 50 MG/ML AMP IV PRN; -FENTANYL CITRATE INJ 50 MCG/1 ML 2 ML VIAL IV PRN; -FENTANYL CITRATE INJ 50 MCG/1 ML 2 ML VIAL ONE; -HYDROCODONE/ACETAMOPHEN 5/325MG TAB PO PRN; -HYDROmorphone INJ 1 MG/ML SYR IV PRN; -IBUPROFEN 600 MG TAB PO PRN; -KETOROLAC TROMETHAMINE 30 MG/ML VIAL IV. PRN; -KETOROLAC TROMETHAMINE 30 MG/ML VIAL ONE; -LIDOCAINE 2% 20 MG/ML 5ML SYR ONE; -MIDAZOLAM HCL 1 MG/ML 2ML VIAL ONE; -NURSING VERBAL MED ORDER ONE; -ONDANSETRON INJ 2 MG/ML 2 ML VIAL IV PRN; -ONDANSETRON INJ 2 MG/ML 2 ML VIAL ONE; -OXYCODONE/ACETAMINOPHEN 5-325 TAB PO PRN; -PREN0.12 PO; +PRENTAB26 PO; -PROPOFOL IV EMULSION 10 MG/ML 20 ML VIAL IV ONE; -SCOPOLAMINE 1.5 MG TDSY TD ONE; -SODIUM CHLORIDE 0.9% 1000ML 1,000 ML IV SCH
[2017-12-27 17:27] LABS: HEMATOCRIT 36.2 % (37-47); HEMOGLOBIN 12.1 g/dL (12.0-16.0)
== END | disposition home or self-care (01) ==
LOC: C.LAB1850 16:27
PROVIDERS: ATTEND Obstetrics & Gynecology
DX: O09.293 Supervision of pregnancy with other poor reproductive or obstetric history, third trimester (principal)

== ENCOUNTER 2017-12-29 01:58 | Emergency (ER) | payer OTHER ==
[~2017-12-29] VITALS: Ht 160 cm; Wt 64.8 kg
[2017-12-29 02:02] VITALS: TEMP 36.8; Ht 160 cm; Wt 64.8 kg
--- NOTE | 2017-12-29 02:37 | EMERGENCY ROOM VISIT NOTE ---
History Report prepared by Isaiah: Wilian Dobbins Under the Supervision of: Tennille GarsiaO. First contact with patient: 02:09 Chief Complaint: FLU LIKE SX Stated Complaint: BAD COUGH,CONGESTED,HEADACHE,28WKS PREG,CALLED L&D History of Present Illness The patient is a 22 year old female who presents to the Emergency Room with complaints of a persistent cough beginning 4 days ago. The patient states that her coughing has worsened over the last two days. She notes that it is now painful for her to cough, and that her coughing is keeping her up at night. She also complains of a headache, sore throat, and vomiting. She reports that the headache is likely due to the fact that she cannot sleep, and that she occasionally vomits when she coughs hard. The patient states that she tried taking Tylenol cold and head and cough drops with no relief of her symptoms. She notes that she has a history of migraines and is currently . She reports that she has also had a miscarriage prior to her current . The patient states that she smokes cigarettes and received her flu shot this year. Source of History: patient Onset: 4 days ago Position: chest Quality: other (cough) Timing: other (persistent) Associated Symptoms: + headache, + sorethroat, + vomiting Review of Systems See HPI for pertinent positives & negatives. A total of 10 systems reviewed and were otherwise negative. Past Medical & Surgical Medical Problems: (1) Hx of migraines (2) Miscarriage (3) Surgical Problems: (1) [place] teeth extracted Family History Cancer Diabetes mellitus Heart disease Seizures Social History Smoking Status: Current Every Day Smoker Alcohol Use: none Marital Status: in relationship Housing Status: lives with family Occupation Status: student Current/Historical Medications Scheduled Multivit/Min/Iron/Fol Ac/Pren ( Vitamin), 1 TAB PO DAILY Allergies Coded Allergies: Penicillins (Verified Allergy, Unknown, ., 08/07/17) Physical Exam Vital Signs Date Time Temp Pulse Resp B/P (MAP) Pulse Ox O2 Delivery O2 Flow Rate FiO2 12/29/17 04:01 88 18 110/59 98 12/29/17 03:54 88 18 110/59 98 Room Air 12/29/17 02:02 36.8 121 20 119/73 98 Room Air Physical Exam HEENT: Head - normocephalic and atraumatic Pupils are equal, round, and reactive to light. Extraocular eye muscles are intact, and sclera are anicteric. Nose - moist nasal mucosa without discharge. Mouth - moist buccal mucosa. Oropharynx is nonerythematous and there is no tonsillar exudate or edema noted. Neck: Supple; no JVD, nuchal rigidity, cervical lymphadenopathy. Heart: Regular rate and rhythm. There is a normal S1 and S2 with no murmurs, clicks, or gallops appreciated. Lungs: Clear to auscultation bilaterally with no wheezes, rales, or rhonchi. Diminished breath sounds in both lung bases. Abdomen: Soft, completely nontender, gravid, with good bowel sounds. There are no palpable pulsatile masses or hepatosplenomegaly. There is no guarding, rigidity, or rebound noted. Extremities: No evidence of cyanosis, clubbing, or edema. There are easily palpable peripheral pulses. Skin: warm and dry with good turgor and no rashes. Medical Decision & Procedures ER Provider Diagnostic Interpretation: Radiology results as stated below per my review and interpretation: CHEST X-RAY: No pulmonary infiltrates. No pleural effusion. Laboratory Results Test 12/29/17 02:25 Influenza Type A Antigen Neg for Influ A (NEG) Influenza Type B Antigen POS for Influ B (NEG) Laboratory results per my review. Medications Administered Medications (Trade) Dose Ordered Sig/Zeenat Route Start Time Stop Time Status Last Admin Dose Admin Dextromethorphan Polymer Complex (Delsym Susp) 30 mg NOW STAT PO 12/29/17 03:30 12/29/17 03:31 DC 12/29/17 03:55 30 MG Oseltamivir Phosphate (Tamiflu Cap) 75 mg NOW STAT PO 12/29/17 03:48 12/29/17 03:49 DC 12/29/17 03:54 75 MG Procedure 0330: Dextromethorphan Polymer Complex 30mg PO 0348: Tamiflu Cap 75 mg PO ED Course 0231: Past medical records reviewed. The patient was evaluated in room A10. A complete history and physical exam was performed. Her nose was swab for influenza. She went for chest x-ray as described above. 0330: Dextromethorphan Polymer Complex 30mg PO 0335: I reevaluated and updated the patient. She is doing alright. She wanted me to run her results by OB. 0343: I spoke to Dr. Medina - Obstetrics/Gynecology, [facility] [place]. She agrees that the patient can receive Tamiflu. 0348: Tamiflu Cap 75 mg PO 0352: Upon reevaluation, the patient is stable. I discussed findings and results with her. She verbalized agreement of the treatment plan. The patient was discharged home. Medical Decision The patient is a 22 year old female who presents to the Emergency Room with complaints of a persistent cough beginning 4 days ago. Differential diagnoses include: bronchitis, pneumonia, URI, and influenza. Lab Results Show: Influenza B positive. This is a 22-year-old female patient who is her second trimester who presents to the emergency department with a persistent cough and upper respirations symptoms. Influenza testing was positive. O2 saturations were normal. The patient will be treated with Tamiflu. I also chose to treat her partner who is in close proximity to her with prophylactic dose of Tamiflu. The patient has an appointment scheduled with OB in 5 days. She will keep that appointment. She was told to return to the emergency department for any worsening symptoms. Medication Reconcilliation Current Medication List: was personally reviewed by me Blood Pressure Screening Patient's blood pressure: Normal blood pressure Blood pressure disposition: Did not require urgent referral Consults Time Called: 034 Consulting Physician: Dr. Medina - Obstetrics/Gynecology Returned Call: [phone] She suggests that the patient can receive Tamiflu. Impression Primary Impression: Influenza B Scribe Attestation The scribe's documentation has been prepared under my direction and personally reviewed by me in its entirety. I confirm that the note above accurately reflects all work, treatment, procedures, and medical decision making performed by me. Departure Information Dispostion Home / Self-Care Referrals No Doctor, Assigned (PCP) Forms HOME CARE DOCUMENTATION FORM, IMPORTANT VISIT INFORMATION Patient Instructions My [facility] Additional Instructions Rest. Take plenty of clear liquids tamiflu twice a day Follow up with OB.
[2017-12-29] MEDS ORDERED: PRENTAB26 PO (02:43)
[2017-12-29 02:46] LABS: INFLUENZA B ANTIGEN POS for Influ B (NEG)
[2017-12-29] MEDS ORDERED: DEXTROMETHORPHAN POLYMR COMPLX 30 MG/5 ML UDP PO STA (03:30)
[2017-12-29] MEDS ORDERED: OSELTAMIVIR PHOSPHATE 75 MG CAP PO STA (03:48)
[2017-12-29 04:01] VITALS: BP 110/59; PULSE 88; O2SAT 98
--- NOTE | 2017-12-29 06:44 | DIAGNOSTIC IMAGING REPORT ---
CHEST 2 VIEWS ROUTINE HISTORY: 22 years-old Female [facility] acute flu like symptoms COMPARISON: Chest radiograph 04/21/2016 TECHNIQUE: PA and lateral views of the chest FINDINGS: Cardiomediastinal and hilar silhouettes are within normal limits. There is no pneumothorax, pleural effusion, focal airspace consolidation or overt pulmonary edema. The bones of the chest appear grossly intact. IMPRESSION: No acute process. The above report was generated using voice recognition software. It may contain grammatical, syntax or spelling errors. Electronically signed by: Nakul Maldonado M.D. 12/29/2017 6:43 AM Dictated Date/Time: 12/29/2017 6:42 AM
== END 2017-12-29 04:03 | disposition home or self-care (01) ==
LOC: C.EDB 02:00 → C.EDA 04:03
DX: J10.1 Influenza due to other identified influenza virus with other respiratory manifestations (principal); O99.512 Diseases of the respiratory system complicating pregnancy, second trimester; G43.909 Migraine, unspecified, not intractable, without status migrainosus; Z80.9 Family history of malignant neoplasm, unspecified; Z83.3 Family history of diabetes mellitus; Z82.49 Family history of ischemic heart disease and other diseases of the circulatory system; F17.210 Nicotine dependence, cigarettes, uncomplicated

== ENCOUNTER 2018-01-05 17:53 | Outpatient (CLI) | payer OTHER ==
[~2018-01-05] VITALS: Ht 160 cm; Wt 50.0 kg
[2018-01-05 19:29] VITALS: Ht 160 cm; Wt 50.0 kg
== END 2018-01-05 19:21 | disposition home or self-care (01) ==
LOC: C.OPB 17:53 → C.LD 17:53 → C.OPB 19:21
PROVIDERS: ATTEND Obstetrics & Gynecology
DX: O99.89 Other specified diseases and conditions complicating pregnancy, childbirth and the puerperium (principal); N36.1 Urethral diverticulum; Z3A.29 29 weeks gestation of pregnancy

== ENCOUNTER → 2018-01-19 | Outpatient (CLI) | payer OTHER | END | disposition home or self-care (01) | LOC: C.LABSPEC 17:07 | PROVIDERS: ATTEND Urology | DX: O00.00 Abdominal pregnancy without intrauterine pregnancy (principal) ==

== ENCOUNTER → 2018-02-24 | Outpatient (CLI) | payer OTHER | END | disposition home or self-care (01) | LOC: C.LABSPEC 13:56 | PROVIDERS: ATTEND Obstetrics & Gynecology | DX: Z34.03 Encounter for supervision of normal first pregnancy, third trimester (principal) ==

== ENCOUNTER 2018-03-13 01:43 | Inpatient (IN) | payer OTHER ==
[~2018-03-13] VITALS: Ht 160 cm; Wt 72.6 kg
[2018-03-13 02:28] VITALS: Ht 160 cm; Wt 72.6 kg
[2018-03-13] MEDS ORDERED: LACTATED RINGER'S 1000ML 1,000 ML IV PRN (04:30)
[2018-03-13] MEDS ORDERED: FENTANYL CITRATE INJ 50 MCG/1 ML 2 ML VIAL ONE (05:07)
[2018-03-13] MEDS ORDERED: BUPIVACAINE 0.25% 30 ML VIAL ONE ×2 (05:07→18:10)
[2018-03-13] MEDS ORDERED: EpHEDrine SULFATE INJ 50 MG/ML AMP ONE (05:07)
[2018-03-13] MEDS ORDERED: FENTANYL 2MCG/ML ROPIV 1.25MG/ML 100ML BAG EPI ONE (05:08)
[2018-03-13 05:25] LABS: HEMATOCRIT 35.6 % (37-47); HEMOGLOBIN 11.7 g/dL (12.0-16.0); MEAN CELL VOLUME 84.8 fL (80-100); MEAN CORPUSCULAR HEMOGLOBIN 27.9 pg (25-34); MEAN PLATELET VOLUME 9.9 fL (7.4-10.4); PLATELET COUNT 260 K/uL (130-400); RED CELL DISTRIBUTION WIDTH CV 13.6 % (11.5-14.5); RED CELL DISTRIBUTION WIDTH SD 41.4 fL (36.4-46.3)
[2018-03-13 05:27] LABS: MEAN CORPUSCULAR HGB CONC 32.9 g/dl (32-36)
[2018-03-13] MEDS: LACTATED RINGER'S 1000ML 1,000 ML IV SCH ×3 (06:28→14:58)
[2018-03-13] MEDS ORDERED: NALOXONE HCL INJ 1 MG in SODIUM CHLORIDE 0.9% 1000ML 1,000 ML IV PRN (06:38)
[2018-03-13] MEDS ORDERED: LACTATED RINGER'S 1000ML 500 ML IV PRN ×2 (06:38→11:08)
[2018-03-13] MEDS ORDERED: ONDANSETRON INJ 2 MG/ML 2 ML VIAL IV PRN (06:45)
[2018-03-13] MEDS ORDERED: DiphenhydrAMINE HCL 50 MG/ML VIAL IV PRN (06:45)
[2018-03-13] MEDS ORDERED: EpHEDrine SULFATE INJ 50 MG/ML AMP IV PRN (06:45)
[2018-03-13] MEDS ORDERED: NALBUPHINE HCL INJ 10 MG/ML AMP IV PRN (06:45)
[2018-03-13] MEDS ORDERED: NALOXONE HCL INJ 0.4 MG/1 ML VIAL/CARP IV PRN (06:45)
[2018-03-13] MEDS ORDERED: OXYTOCIN 30 UNITS/500ML NSS IV PRN ×2 (11:15→19:45)
[2018-03-13] MEDS: FENTANYL 2MCG/ML ROPIV 1.25MG/ML 100ML BAG EPI PRN ×2 (14:17→14:59)
[2018-03-13] MEDS ORDERED: ACETAMINOPHEN 325 MG TAB PO PRN (19:45)
[2018-03-13] MEDS ORDERED: SUPERCREAM 0.870 % 15GM JAR EXT PRN (19:45)
[2018-03-13] MEDS ORDERED: BENZOCAINE 20% AER SPR 82.5 GM CAN EXT PRN (19:45)
[2018-03-13] MEDS ORDERED: IBUPROFEN 600 MG TAB PO PRN (19:45)
[2018-03-13] MEDS ORDERED: LANOLIN OINT EXT PRN (19:45)
[2018-03-13] MEDS ORDERED: OXYCODONE/ACETAMINOPHEN 5-325 TAB PO PRN (19:45)
--- NOTE | 2018-03-13 19:48 | Anesthesia Procedure Note ---
Anesthesia Epidural Removal Nt Date & Time Mar 13, 2018 at 19:48 Vital Signs Pain Intensity: 0.0 Notes Mental Status: alert / awake / arousable, participated in evaluation Nausea / Vomiting: adequately controlled Pain: adequately controlled Airway Patency, RR, SpO2: stable & adequate BP & HR: stable & adequate Hydration State: stable & adequate Neuraxial Anesthesia: was administered, sensory block is resolving Anesthetic Complications: no major complications apparent, pt satisfied with anesthetic care Epidural: removed without complications, with tip intact
[2018-03-13] MEDS: DOCUSATE SODIUM 100 MG CAP PO SCH (20:00)
--- NOTE | 2018-03-13 20:10 | DELIVERY SUMMARY ---
DATE OF OPERATION: 03/13/2018 DELIVERY NOTE The patient is a 22-year-old nulligravida white female, who had presented in labor at 39 weeks. She received effective epidural analgesia. Her membranes have ruptured for clear fluid. She required Pitocin augmentation. She progressed to full dilation and she pushed effectively over an intact perineum for delivery of a viable male . A loose nuchal cord was reduced at the time of delivery. The rest of the delivered easily and was placed on the mother's abdomen for further attention. There was spontaneous crying,and the infant was moving all 4 limbs. After 30 seconds, the cord was clamped and cut. The placenta was expressed intact with a 3-vessel cord. A left first-degree labial laceration, was not bleeding, and not repaired. A second-degree right labial laceration was repaired with 3-0 chromic in the usual fashion. Estimated blood loss was 200 mL. Mother and infant were doing well after delivery. I attest to the content of the Intraoperative Record and any orders documented therein. Any exceptions are noted below. WILLIAMS
[2018-03-13 22:30] VITALS: BP 103/60; PULSE 76
[2018-03-13 23:30] VITALS: BP 105/62; PULSE 69; TEMP 37.2
[2018-03-14 04:05] VITALS: BP 110/64; PULSE 75; TEMP 36.7
--- NOTE | 2018-03-14 06:41 | Progress Note ---
Subjective Mar 14, 2018. Subjective conversation w/ patient, physical exam, chart review, lab review Ambulation: ambulating normally Voiding: no voiding problems Passing Gas: Yes Diet Tolerance: Regular Diet Lochia: Moderate Feeding Type: Breast Feeding Review of Systems Constitutional: No fever, No chills Respiratory: No cough, No shortness of breath Cardiac: No chest pain, No palpitations Abdomen: No pain, No nausea, No vomiting Female : No dysuria Objective Vital Signs Date Time Temp Pulse Resp B/P (MAP) Pulse Ox O2 Delivery O2 Flow Rate FiO2 03/14/18 04:05 36.7 75 18 110/64 (79) Room Air 03/13/18 23:37 Room Air 03/13/18 23:30 37.2 69 18 105/62 (76) Room Air 03/13/18 22:30 76 18 103/60 (74) Room Air Physical Exam General Appearance: WELL-APPEARING, WD/WN, NO APPARENT DISTRESS Respiratory/Chest: lungs clear, no respiratory distress Cardiovascular: regular rate, rhythm, no murmur Abdomen: non tender, soft Fundus: Firm, Relation to Umbilicus (1 below u) Extremities: non-tender, normal inspection Laboratory Results Last 24 Hours Test 03/14/18 06:29 Assessment and Plan Problem List Medical Problems: (1) Acute bronchitis Status: Acute (2) Change in stool Status: Acute (3) Diarrhea Status: Acute (4) Incidental Status: Acute (5) Inevitable Status: Acute (6) Influenza B Status: Acute (7) Status: Acute (8) Threatened miscarriage Status: Acute (9) Upper respiratory infection Status: Acute (10) Vaginal bleeding Status: Acute Post- Day#: 1 Continue Routine Care: Resident Physician Supervision Note: I interviewed and examined the patient. Discussed with Dr. Aaron Lr and agree with findings and plan as documented in the note. Any exceptions or clarifications are listed here: [None] Documented By: Albina Lama Yanet 22, F, , A+/RI/GBS-, PPD1. Vital reviewed, WNL. Hgb 11.7 on admission, pending this am. No signs or sx of anemia. Doing well clinically. Plan; 1. Recovery from vaginal delivery; ambulate, support BF, monitor lochia, control pain
[2018-03-14 07:02] LABS: HEMATOCRIT 35.9 % (37-47); HEMOGLOBIN 11.5 g/dL (12.0-16.0)
[2018-03-14] MEDS: PRENATAL VITAMIN TAB PO SCH (07:58)
[2018-03-14] MEDS: DOCUSATE SODIUM 100 MG CAP PO SCH ×2 (07:58→20:15)
[2018-03-14 08:00] VITALS: BP 109/62; PULSE 64; TEMP 36.8
[2018-03-14 12:00] VITALS: BP 122/59; PULSE 71; TEMP 36.7
[2018-03-14 15:50] VITALS: BP 118/65; PULSE 70; TEMP 37.1; O2SAT 98
[2018-03-14 19:30] VITALS: BP 106/61; PULSE 60; TEMP 36.6
[2018-03-15 00:15] VITALS: BP 101/61; PULSE 74; TEMP 36.8
--- NOTE | 2018-03-15 06:41 | Progress Note ---
Subjective Mar 15, 2018. Subjective conversation w/ patient, conversation w/ family, physical exam, chart review, lab review Voiding: no voiding problems Passing Gas: Yes Diet Tolerance: Regular Diet Lochia: Small Feeding Type: Breast Feeding Review of Systems Constitutional: No fever, No chills Respiratory: No cough, No shortness of breath Cardiac: No chest pain, No palpitations Abdomen: No pain, No nausea, No vomiting Female : No dysuria Objective Vital Signs Date Time Temp Pulse Resp B/P (MAP) Pulse Ox O2 Delivery O2 Flow Rate FiO2 03/15/18 00:15 36.8 74 18 101/61 (74) Room Air 03/15/18 00:15 Room Air 03/14/18 19:30 36.6 60 18 106/61 (76) Room Air 03/14/18 15:50 98 Room Air 03/14/18 15:50 37.1 70 18 118/65 (82) 98 Room Air 03/14/18 12:00 36.7 71 16 122/59 (80) Room Air 03/14/18 08:00 36.8 64 18 109/62 (78) Room Air 03/14/18 07:45 Room Air Physical Exam General Appearance: WELL-APPEARING, WD/WN, NO APPARENT DISTRESS Respiratory/Chest: lungs clear, no respiratory distress Cardiovascular: regular rate, rhythm, no murmur Abdomen: non tender, soft Fundus: Firm, Relation to Umbilicus (1 cm below u) Extremities: non-tender, normal inspection Assessment and Plan Problem List Medical Problems: (1) Acute bronchitis Status: Acute (2) Change in stool Status: Acute (3) Diarrhea Status: Acute (4) Incidental Status: Acute (5) Inevitable Status: Acute (6) Influenza B Status: Acute (7) Status: Acute (8) Threatened miscarriage Status: Acute (9) Upper respiratory infection Status: Acute (10) Vaginal bleeding Status: Acute Post- Day#: 2 Continue Routine Care: 22, F, , A+/RI/GBS-, PPD2. Vital reviewed, WNL. Hgb 11.7 on admission, 11.5 on 03/14. No signs or sx of anemia. Doing well clinically. Plan; 1. Recovery from vaginal delivery; ambulate, support BF, monitor lochia, control pain 2. Discharge planning discussed Resident Physician Supervision Note: I was present with Dr. Lr during the history and exam. I discussed the case with the resident and agree with the findings and plan as documented in the note. Any exceptions or clarifications are listed here: PPD#2 doing well. Discharge today. Documented By: Abigail Medina
--- NOTE | 2018-03-15 06:42 | Discharge Instructions ---
Discharge Instructions Date of Service Mar 15, 2018. Admission Reason for Admission: LABOR Discharge Discharge Diagnosis / Problem: vaginal delivery Discharge Goals Goal(s): Routine recovery after delivery Medications Continue Dispensed Medications: supercream, dermaplast, tucks, lansinoh Activity Recommendations Activity Limitations: per Instructions/Follow-up section . Instructions / Follow-Up Instructions / Follow-Up ACTIVITY RECOMMENDATIONS: * Gradual return to full activity over the next 2-3 weeks. * No lifting - nothing heavier than baby over the next 2-3 weeks. * Do not engage in vigorous exercise, sexual activity or sports until cleared by your physician. * Do not drive or operate any motorized equipment until cleared by your physician. * You may shower/bathe daily. MEDICATIONS: For discomfort or pain, you may use Acetaminophen (Tylenol), Ibuprofen (Advil), or Naproxen (Aleve) following the package directions. For constipation you may use Colace following the package directions. BREAST CARE: If you are not breast feeding: * Wear a supportive bra 24 hours a day for one to two weeks. * Avoid stimulating your breasts and nipples as much as possible during the first few weeks after delivery. * When taking a shower, have the warm water hit your back, not breasts. * When your breasts feel full, apply ice packs. Usually three to four times a day helps ease the discomfort. * Take a mild pain medication (Tylenol / Motrin) when you are uncomfortable. If breast feeding: * Use breast milk to lubricate nipples. Lansinoh cream may be used for sore nipples. You do not need to remove cream prior to breast feeding. If using a different brand of cream, check the label for directions regarding removal of cream prior to nursing. * Wear a supportive bra. * If having problems with breasts or breast feeding, call a ent consultant or your health care provider. EPISIOTOMY CARE: After delivery, if you have an episiotomy (stitches), the following steps will ease discomfort and aid healing. * For the first 24 hours after delivery, place ice packs next to your episiotomy to help reduce swelling. * After the first 24 hour-period, sitz baths, either portable or in the tub, are suggested. A shower with a shower arm sprayed over the episiotomy may be comforting. * Sujatha care should be done after each voiding and bowel movement. Squirt warm water from a plastic bottle over the perineum (region of the body between the anus and urinary opening) and pat dry. * Use Dermoplast to ease discomfort. Shake container. [place] directly over the episiotomy. Place a Tucks on a clean sanitary pad next to your episiotomy. SPECIAL CARE INSTRUCTIONS: When you are discharged from the hospital, it is important for you to follow the instructions listed below: * During the first week at home, you should be able to care for yourself and your baby. In addition, the usual light household activities are encouraged. * Limit your activities to the way you feel. Do not try to clean the house or move furniture. Be sensible. * If you actively engage in sports and have done so up until the time of your delivery, you may resume these activities as soon as you feel able. This may take up to one month or even longer. Use good judgment. * Continue to take your vitamins for at least six weeks after the of your baby. * Your diet need not be limited unless you were on a special diet before your delivery. Breast-feeding mothers need around 2500 calories per day and at least 64-80 ounces of fluid per day (8 to 10 glasses). * You should eat foods from the four major food groups. Crash diets or fad diets are to be avoided. Eating lean meats, fresh fruits and vegetables, low-fat dairy products, high fiber foods and a regular exercise program, will help you get back to your pre- weight without putting your health at risk. * Constipation is sometimes a problem after delivery. Take a mild laxative as needed. If breast feeding, Milk of Magnesia is acceptable to use. You may use a suppository or Fleets enema if no episiotomy. * A daily shower or tub bath is suggested. Be sure to thoroughly and gently dry the perineum. * A bloody vaginal discharge will usually continue until around four weeks post . A small amount of bleeding may continue for as long as six weeks. Vaginal discharge changes from the bright red bleeding after delivery to pink then brownish and finally yellowish-pink before becoming white and disappearing. * Bleeding may increase with activity. Your first period may come in 4-8 weeks. If you are breast feeding, your period may be delayed even longer. * [place] (sex) can begin whenever both you and your partner feel comfortable and do not have any form of genital infection. It is recommended that you wait at least six weeks for internal and external healing to occur. If you have questions, please talk to your health care practitioner. A condom should be used to prevent infection and . * Foreplay, gentle intercourse and lubrication is very important the first several times to prevent pain. A water-based lubricant such as K-Y jelly or Astroglide may be used. * If you have RH negative blood and your baby is RH positive, you will receive RHOGAM by injection prior to discharge. The nurse will give you a card to keep with you that has the date and place that you received RHOGAM after delivery. * During your care, you had a Rubella screen done to check for the presence of rubella antibodies in your blood. If your test was negative, you will receive a Rubella vaccine prior to discharge. This vaccine may cause a fever, soreness at the injection site and flu-like symptoms. If these symptoms persist, notify your health care practitioner. is not advised for one month after a Rubella vaccine. * Verbalizes understanding of car seat law as reviewed with patient nursing. * Car Seat hand-out given and reviewed with patient by nursing. * Shaken baby information reviewed with patient by nursing. Call you doctor if: * Heavy bleeding (saturating several pads an hour) or passing clots the size of your fist. * A fever >101 degrees F (38.3 degrees C) on two occasions four hours apart and /or chills. * Unusual pain in the pelvic or vaginal areas. * "Baby Blues" lasting longer than two weeks. If you have any questions or concerns, call your health care practitioner at . FOLLOW UP VISIT: * Please call the office at to schedule a 6 week examination. It is important you keep this appointment. It is important for you to make arrangements for either yearly or twice yearly check-ups thereafter. Current Hospital Diet Patient's current hospital diet: Regular OB Diet Discharge Diet Recommended Diet: Regular Diet, Regular OB Diet Pending Studies Studies pending at discharge: no Medical Emergencies . Who to Call and When: Medical Emergencies: If at any time you feel your situation is an emergency, please call [phone] immediately. . Non-Emergent Contact Non-Emergency issues call your: Primary Care Provider, [employer] . . "Provider Documentation" section prepared by Ananda Lr. .
[2018-03-15 08:10] VITALS: BP 110/72; PULSE 59; TEMP 36.4; O2SAT 98
[2018-03-15] MEDS: PRENATAL VITAMIN TAB PO SCH (08:16)
[2018-03-15] MEDS: DOCUSATE SODIUM 100 MG CAP PO SCH (08:16)
[2018-03-15 14:50] VITALS: BP_DIAS 72; PULSE 59; TEMP 36.4
== END 2018-03-15 14:50 | disposition home or self-care (01) | DRG 775 ==
LOC: C.LD 01:43 → C.OPB 01:43 → C.LD 04:31 → C.OBG 22:50
PROVIDERS: ADMIT Obstetrics & Gynecology; ATTEND Obstetrics & Gynecology
PROC: 0KQM0ZZ Repair Perineum Muscle, Open Approach (ICD-10-PCS; principal; 2018-03-13)
PROC: 10E0XZZ Delivery of Products of Conception, External Approach (ICD-10-PCS; principal; 2018-03-13)
DX: O70.1 Second degree perineal laceration during delivery (principal); O69.81X1 Labor and delivery complicated by cord around neck, without compression, fetus 1; Z37.0 Single live birth